=== PATIENT | female | born 1985 | race Two or more races ===

== ENCOUNTER 2020-06-22 09:22 | Emergency (ER) | payer SELFPAY ==
[~2020-06-22] VITALS: Ht 167.6 cm; Wt 49.9 kg
[2020-06-22 09:29] VITALS: BP 114/67
--- NOTE | 2020-06-22 09:56 | NUR ---
Patient discharged to home in stable condition. Written and verbal after care instructions given. Patient verbalizes understanding of instruction.
== END 2020-06-22 09:56 | disposition home or self-care (01) ==
LOC: ER 09:26
DX: U07.1 COVID-19 (principal); F41.9 Anxiety disorder, unspecified
CPT/HCPCS: 71045-TC